=== PATIENT | female | born 1950 | race Caucasian/White ===

== ENCOUNTER 2016-08-27 09:21 | Day surgery (SDC) | payer MEDICARE, OTHER ==
--- NOTE | ~2016-08-27 | EGD ---
EGD REPORT [facility] [address] [address] NAME: TIFFANIE PETIT : [birth year] [place] [facility] [place] [id number] AGE: 66 ADM/REG DATE : 08/27/16 MR#: [id number] REPORT SERV DATE: 08/27/16 DICTATED BY: DELVIN NATH DATE: 08/27/16 REPORT STATUS : Draft TRANSCRIBED BY: [facility] DATE: 08/27/16 Endoscopy Center Patient Name: Tiffanie Petit Date of : 1950 Attending MD: DELVIN NATH MD Procedure Date No Time: 08/27/2016 Procedure: Colonoscopy Indications: Generalized abdominal pain, Change in bowel habits, Constipation Referring MD: JOJO NORTON Medicines: Monitored Anesthesia Care Complications: No immediate complications. Procedure: Pre-Anesthesia Assessment: - ASA Grade Assessment: III - A patient with severe systemic disease. After I obtained informed consent, the scope was passed under direct vision. Throughout the procedure, the patient's blood pressure, pulse, and oxygen saturations were monitored continuously. The PCF [id number] was introduced through the anus and advanced to the cecum, identified by the ileocecal valve. The colonoscopy was performed with moderate difficulty due to significant looping. Successful completion of the procedure was aided by applying abdominal pressure. The patient tolerated the procedure well. The quality of the bowel preparation was adequate. Findings: The digital rectal exam was normal. Pertinent negatives include no palpable rectal lesions. Hemorrhoids were found during retroflexion and were moderate. Impression: - Hemorrhoids. Recommendation: - Patient has a contact number available for emergencies. The signs and symptoms of potential delayed complications were discussed with the patient. Return to normal activities tomorrow. Written discharge instructions were provided to the patient. - Regular diet. - Continue present medications. - Repeat colonoscopy in 5 years for surveillance. - Return to GI clinic in 1 month. Procedure Code(s): --- Professional --- EGD REPORT [facility] [address] [id number] NAME: TIFFANIE PETIT : [birth year] STATUS : REG [facility]#: [id number] AGE: 66 ADM/REG DATE : 08/27/16 MR#: [id number] REPORT SERV DATE: 08/27/16 DICTATED BY: DELVIN NATH DATE: 08/27/16 REPORT STATUS : Draft TRANSCRIBED BY: [email or web address] DATE: 08/27/16 [id number], Colonoscopy, flexible, proximal to splenic flexure; diagnostic, with or without collection of specimen(s) by brushing or washing, with or without colon decompression (separate procedure) Diagnosis Code(s): --- Professional --- K64.9, Unspecified hemorrhoids R10.84, Generalized abdominal pain R19.4, Change in bowel habit K59.00, Constipation, unspecified CPT copyright 2013 [employer]. All rights reserved. The codes documented in this report are preliminary and upon band machine operator review may be revised to meet current compliance requirements. DELVIN NATH MD 08/27/2016 12:21 PM This report has been signed electronically. Number of Addenda: 0 Note Initiated On: 08/27/2016 11:54 AM Scope Withdrawal Time 0 hours 6 minutes 41 seconds [address] [id number]
--- NOTE | ~2016-08-27 | EGD ---
EGD REPORT [facility] [address] [place] [address] NAME: TIFFANIE PETIT : [birth year] [place] [facility] [place] [id number] AGE: 66 ADM/REG DATE : 08/27/16 MR#: [id number] REPORT SERV DATE: 08/27/16 DICTATED BY: DELVIN NATH DATE: 08/27/16 REPORT STATUS : Draft [facility]ANSCRIBED BY: [facility] DATE: 08/27/16 Endoscopy Center Patient Name: Tiffanie Petit Date of : 1950 Attending MD: DELVIN NATH MD Procedure Date No Time: 08/27/2016 Procedure: Upper GI endoscopy Indications: Generalized abdominal pain, Esophageal reflux Referring MD: JOJO NORTON Medicines: Monitored Anesthesia Care Complications: No immediate complications. Procedure: Pre-Anesthesia Assessment: - ASA Grade Assessment: III - A patient with severe systemic disease. After obtaining informed consent, the endoscope was passed under direct vision. Throughout the procedure, the patient's blood pressure, pulse, and oxygen saturations were monitored continuously. The GIF H190 [id number] was introduced through the mouth, and advanced to the second part of duodenum. The upper GI endoscopy was accomplished without difficulty. The patient tolerated the procedure well. Findings: The examined esophagus was normal. Diffuse moderately erythematous mucosa without bleeding was found in the gastric antrum. Biopsies were taken with a cold forceps for histology. The cardia and gastric fundus were normal on retroflexion. The duodenal bulb and 2nd part of the duodenum were normal. Biopsies were taken with a cold forceps for histology. Impression: - Normal esophagus. - Erythematous mucosa in the antrum. Biopsied. - Normal duodenal bulb and 2nd part of the duodenum. Biopsied. Recommendation: - Follow an antireflux regimen. - Await pathology results. Procedure Code(s): --- Professional --- 14360, Esophagogastroduodenoscopy, flexible, transoral; with biopsy, single or multiple Diagnosis Code(s): --- Professional --- K31.9, Disease of stomach and duodenum, unspecified EGD REPORT [address] [place]. [address] NAME: TIFFANIE PETIT : [birth year] [place] [facility] [place] [id number] AGE: 66 ADM/REG DATE : 08/27/16 MR#: [id number] REPORT SERV DATE: 08/27/16 DICTATED BY: DELVIN NATH DATE: 08/27/16 REPORT STATUS : Draft TRANSCRIBED BY: [employer] DATE: 08/27/16 R10.84, Generalized abdominal pain K21.9, Gastro-esophageal reflux disease without esophagitis CPT copyright 2013 [employer]. All rights reserved. The codes documented in this report are preliminary and upon city councilman review may be revised to meet current compliance requirements. DELVIN NATH MD 08/27/2016 12:05 PM This report has been signed electronically. Number of Addenda: 0 Note Initiated On: 08/27/2016 11:53 AM Scope Withdrawal Time 0 hours 0 minutes [address] [place], [place] [address] [address]
[~2016-08-27 09:21] MED LIST: ABILIFY15 PO; ADVAIR250 INH; ANASPAZ0.125 MG PO; ANOROELLIPTA INH; ASA5GR PO; ATRONASAL3 NAS; BUDESONIDE OR; BUDESONIDE PO; CHLORTHALID25 MG OR; CHLORTHALID25 MG PO; CHLORZOXAZON500 MG OR; COREG3 PO; COREGCR10 PO; EFFEXOR XR150 MG PO; EFFEXOR50 MG PO; ENTOCORT3 PO; ESTROGEN IM; ESTROGEN INJ; EVAMIST1.53 MG TD; FLORINEF0.1 MG PO; HEMOCYTE324 MG PO; HEMOCYTET PO; HYGROTON 25 MG25 MG OR; HYGROTON 25 MG25 MG PO; IPRA17AE INH; IRON IJ; KDUR20 PO; KLONO2 PO; KLOR-CON 1010 MEQ PO; KLOR-CON M2020 MEQ PO; L20 PO; LEVOXYL50 MCG PO; LIPITOR20 PO; LOVENOX SC; LOVENOX60 SC; MOVANTIK12.5 MG PO; NITRO SPRAY; NITROGLYCERIN SL; NITROQUICK0.4 MG SL; NITROSPRAY SL; PERCOCET 10/3251 TAB PO; PERCOCET1 TA4 PO; PLAVIX PO; PR25 PO; PROAIR HFA INH; PROTONIX PO; SEROQUEL300 MG PO; SEROQUEL400 MG PO; SEROQUIL PO; SYN125 PO; SYNTHROID175 MCG PO; TESTOSTERONE IJ; TRANXENE 7.5 M7.5 MG PO; TRANXENE T7.5 MG OR; TRANXENE T7.5 MG PO; ULTRAM50 PO; VENLAFAXINE 50 MG PO; VITAMIN C500 M3 PO; VITAMIN D31000 UNIT PO; VITAMIN D400 UNI1 PO; VIVELLE; VIVELLE SY0.1 MG/24 TOP; VIVELLE TD; ZOFRAN4 PO; [UNRECOGNIZED DRUG - OTHER] IM
== END 2016-08-27 23:59 | disposition home or self-care (01) ==
LOC: DMU 09:21
PROVIDERS: Internal Medicine Gastroenterology
PROC: 0DB68ZX Excision of Stomach, Via Natural or Artificial Opening Endoscopic, Diagnostic (ICD-10-PCS; 2016-08-27)
PROC: 0DJD8ZZ Inspection of Lower Intestinal Tract, Via Natural or Artificial Opening Endoscopic (ICD-10-PCS; principal; 2016-08-27 11:00)
PROC: 0DB98ZX Excision of Duodenum, Via Natural or Artificial Opening Endoscopic, Diagnostic (ICD-10-PCS; 2016-08-27 11:00)
DX: K59.00 Constipation, unspecified (principal); K64.9 Unspecified hemorrhoids; K21.9 Gastro-esophageal reflux disease without esophagitis; I25.10 Atherosclerotic heart disease of native coronary artery without angina pectoris; M19.90 Unspecified osteoarthritis, unspecified site; K58.9 Irritable bowel syndrome, unspecified; J44.9 Chronic obstructive pulmonary disease, unspecified; G43.909 Migraine, unspecified, not intractable, without status migrainosus; H91.90 Unspecified hearing loss, unspecified ear; I25.2 Old myocardial infarction; M79.7 Fibromyalgia; K44.9 Diaphragmatic hernia without obstruction or gangrene; F41.9 Anxiety disorder, unspecified; F32.9 Major depressive disorder, single episode, unspecified; F43.10 Post-traumatic stress disorder, unspecified; Z95.1 Presence of aortocoronary bypass graft; Z86.010 Personal history of colon polyps; Z87.891 Personal history of nicotine dependence; Z88.5 Allergy status to narcotic agent; Z88.8 Allergy status to other drugs, medicaments and biological substances; Z79.82 Long term (current) use of aspirin; Z79.899 Other long term (current) drug therapy; Z79.891 Long term (current) use of opiate analgesic; Z90.89 Acquired absence of other organs; Z98.890 Other specified postprocedural states; Z90.710 Acquired absence of both cervix and uterus; Z87.442 Personal history of urinary calculi
CPT/HCPCS: 88305; J2405